=== PATIENT | male | born 1995 | race African-American/Black ===

== ENCOUNTER 2019-05-06 00:41 | Emergency (ER) | payer MEDICARE, MEDICAID ==
[~2019-05-06] VITALS: Ht 170.2 cm; Wt 69.0 kg
[2019-05-06 02:00] VITALS: BP 121/75
== END 2019-05-06 02:30 | disposition left against medical advice (07) ==
LOC: ER 00:41
DX: Z53.21 Procedure and treatment not carried out due to patient leaving prior to being seen by health care provider (principal)